=== PATIENT | female | born 1970 | race Caucasian/White ===

== ENCOUNTER 2017-11-13 10:45 | Observation (INO) ==
[2017-11-13] MEDS ORDERED: Isovue-370 500 ML INFUS..BTL IV ONE (10:57)
[2017-11-13] MEDS ORDERED: Metoclopramide 10 MG/2 ML VIAL IVP ONE (10:59)
[2017-11-13 11:24] LABS: Basophils % 0.1 %; Eosinophils % 0.1 %; Hemoglobin 14.6 g/dL (11.5-15.4); Immature Granulocytes % 0.5 % (0-4); Lymphocytes # 2.2 K/mcL (0.6-4.6); Lymphocytes % 28.5 %; Mean Corpuscular HGB Conc 34.8 g/dL (31.6-35.5); Mean Corpuscular Volume 97.7 fL (83.0-100.0); Mean Platelet Volume 9.9 fL (9.4-12.4); Monocytes # 0.8 K/mcL (0.0-1.3); Monocytes % 10.5 %; Neutrophils # 4.7 K/mcL (1.6-8.9); Platelet Count 318 K/mcL (140-400); Red Cell Distribution Width 13.3 % (11.5-14.5); Segmented Neutrophils % 60.3 %
[2017-11-13 11:45] LABS: Alanine Aminotransferase 23 Units/L (7-52); Albumin 4.6 g/dL (3.5-5.7); Albumin/Globulin Ratio 1.1 (1.1-2.2); Alkaline Phosphatase 123 Units/L (34-104); Aspartate Amino Transferase 14 Units/L (13-39); Bilirubin,Direct 0.2 mg/dL (0.0-0.2); Bilirubin,Indirect 0.6 mg/dL (0.0-1.2); Bilirubin,Total 0.8 mg/dL (0.3-1.0); Blood Urea Nitrogen 11 mg/dL (6-20); Calcium 10.5 mg/dL (8.6-10.3); Carbon Dioxide 18 mEq/L (23-29); Chloride 103 mEq/L (98-107); Globulin 4.1 g/dL (2.4-3.5); Glucose 126 mg/dL (70-105); Lipase 82 Units/L (11-82); Osmolality,Calculated 279 (280-300); Potassium 2.8 mEq/L (3.5-5.1); Sodium 134 mEq/L (136-145); Total Protein 8.7 g/dL (6.4-8.9)
[2017-11-13 11:48] LABS: BUN/Creatinine Ratio 14 (6-26); eGFR For Non-African Americans > 60 (> 60)
[2017-11-13] MEDS ORDERED: 0.9 % Sodium Chloride 1,000 ML IVC ONE ×2 (12:35→13:39)
[2017-11-13] MEDS ORDERED: *HR* Morphine 2 MG/ML SYRINGE IVP ONE (12:51)
--- NOTE | 2017-11-13 13:27 | Emergency Department Note ---
Disposition Clinical Impression: Hypokalemia Intractable nausea and vomiting Qualifiers: Vomiting type: unspecified Qualified Code(s): R11.2 - Nausea with vomiting, unspecified Disposition: Admitted As Inpatient Condition: Good Referrals: Gaston Cano DO [Primary Care Provider] - General Adult HPI - General Chief complaint: ED Nausea/Vomiting/Diarrhea Stated complaint: N/V Time Seen by Provider: 11/13/17 10:53 Source: EMS Limitations: no limitations Nursing Notes Reviewed: Yes Vital Signs Reviewed: Yes - History of Present Illness HPI Narrative: Patient presents today via EMS for evaluation of nausea vomiting and generalized illness. Complaining of lower abdominal pain. Patient states symptoms started approximately 4 days ago. Seen at outside emergency department 3 days ago and diagnosed with urinary tract infection. Patient states she has been unable to keep down her unknown antibiotic. She states that she has had multiple episodes of nonbloody nonbilious vomiting. Bowel movements the normal. Pain Scale: 10 - Related Data Previous Rx's Medication Instructions Recorded OxyCODONE Immed Rel [Roxicodone 5 5 mg PO Q6HR PRN 7 Days #28 tablet 10/23/17 MG] Allergies Allergy/AdvReac Type Severity Reaction Status Date / Time tramadol [From Ultram] Allergy Unknown See Verified 11/13/17 14:26 Comments ketorolac [From Toradol] Allergy shortness Verified 11/13/17 14:26 of breath aspirin AdvReac See Verified 11/13/17 14:26 Comments codeine AdvReac Itching Verified 11/13/17 14:26 Diclofenac AdvReac Abdominal Verified 11/13/17 14:26 Pain gabapentin AdvReac Swelling Verified 11/13/17 14:26 ondansetron AdvReac Headache Verified 11/13/17 14:26 [From Zofran (as hydrochloride)] Review of Systems: CONSTITUTIONAL: Chills, weakness, fatigue HEENT: Eyes: No visual changes. Ears, Nose, Throat: No hearing loss, difficulty talking or unable to swallow. SKIN: No rash or itching. CARDIOVASCULAR: No chest pain, chest pressure or chest discomfort. No palpitations or edema. RESPIRATORY: No shortness of breath, cough or sputum. GASTROINTESTINAL: Abdominal pain with nausea associated vomiting GENITOURINARY: Decreased urination NEUROLOGICAL: Mild headache and dizziness standing MUSCULOSKELETAL: Generalized muscle aches and malaise Past Medical History - Past Medical History Medical history: Reports: asthma, COPD, hepatitis, hypertension, other Surgical history: Reports: hysterectomy, other Psychiatric history: Reports: anxiety, bipolar, depression, PTSD - Social History Smoking Status: Never smoker Smokeless Tobacco Status: No Alcohol use: Reports: none Drug use: Reports: none Physical Exam General: Mild distress secondary vomiting Head: Normocephalic Atraumatic Eyes: PERRL, EOMI ENT: Airway patent, no stridor Neck: supple, Chest: Lungs clear to auscultation bilateral Cardiac: Regular rate and rhythm, no murmurs, rubs or gallops Abdomen: soft, nontender, nondistended; no guarding, rebound, or tenderness to percussion Musculoskeletal: Calves symmetric, nontender, Skin: No rash, normal skin tone Neuro: Alert and Oriented to person, place, and time; No focal deficit, - General Limitations: no limitations General appearance: alert, in no apparent distress Course - Reevaluation(s) Reevaluation #1: Patient continued to complain of nausea and unable to keep things down. She received Reglan, Benadryl and will now get some Ativan to help with nausea. The patient had recent urinary tract infection is unable to provide sample here in the emergency department but will need admission for intractable nausea vomiting and hypokalemia. She has had her IV potassium ordered within the emergency department. I have discussed with hospitalist. I am awaiting her urine. I will give her ceftriaxone for concern for urinary tract infection. CT scan negative for intra-abdominal process. - Consultations Consultation #1: Discussed with hospitalist. Patient accepted for admission. Vital Signs Temperature 99.0 F 11/13/17 10:48 Pulse Rate 89 11/13/17 10:48 Respiratory Rate 20 11/13/17 10:48 Blood Pressure 149/82 11/13/17 10:48 O2 Sat by Pulse Oximetry 100 11/13/17 10:48 Temperature 99.0 F 11/13/17 10:48 Pulse Rate 89 11/13/17 10:48 Respiratory Rate 20 11/13/17 10:48 Blood Pressure 149/82 11/13/17 10:48 O2 Sat by Pulse Oximetry 100 11/13/17 10:48 Oxygen Delivery Oxygen Delivery Room Air Medical Decision Making - Lab Data Result diagrams: 11/13/17 11:08 11/13/17 11:08 Lab Results 11/13/17 11/13/17 Range/Units 11:08 11:08 WBC 7.8 (4.3-11.1) K/mcL RBC 4.30 (3.82-4.97) M/mcL Hgb 14.6 (11.5-15.4) g/dL Hct 42.0 (35.3-44.9) % MCV 97.7 (83.0-100.0) fL MCH 34.0 H (28.0-33.3) pg MCHC 34.8 (31.6-35.5) g/dL RDW 13.3 (11.5-14.5) % Plt Count 318 (140-400) K/mcL MPV 9.9 (9.4-12.4) fL Immature Gran % 0.5 (0-4) % Seg Neutrophils % 60.3 % Lymphocytes % 28.5 % Monocytes % 10.5 % Eosinophils % 0.1 % Basophils % 0.1 % Neutrophils # 4.7 (1.6-8.9) K/mcL Lymphocytes # 2.2 (0.6-4.6) K/mcL Monocytes # 0.8 (0.0-1.3) K/mcL Eosinophils # 0.0 (0.0-0.6) K/mcL Basophils # 0.0 (0.0-0.2) K/mcL Sodium 134 L (136-145) mEq/L Potassium 2.8 L (3.5-5.1) mEq/L Chloride 103 (98-107) mEq/L Carbon Dioxide 18 L (23-29) mEq/L BUN 11 (6-20) mg/dL Creatinine 0.77 (0.60-1.20) mg/dL Est GFR ( Amer) > 60 (> 60) Est GFR (Non-Af Amer) > 60 (> 60) BUN/Creatinine Ratio 14 (6-26) Glucose 126 H (70-105) mg/dL Calculated Osmolality 279 L (280-300) Calcium 10.5 H (8.6-10.3) mg/dL Total Bilirubin 0.8 (0.3-1.0) mg/dL Direct Bilirubin 0.2 (0.0-0.2) mg/dL Indirect Bilirubin 0.6 (0.0-1.2) mg/dL AST 14 (13-39) Units/L ALT 23 (7-52) Units/L Alkaline Phosphatase 123 H (34-104) Units/L Serum Total Protein 8.7 (6.4-8.9) g/dL Albumin 4.6 (3.5-5.7) g/dL Globulin 4.1 H (2.4-3.5) g/dL Albumin/Globulin Ratio 1.1 (1.1-2.2) Lipase 82 (11-82) Units/L
[2017-11-13] MEDS ORDERED: *HR* LORazepam 2 MG/ML VIAL IVP ONE (14:20)
[2017-11-13] MEDS ORDERED: cefTRIAXone 1,000 MG in Water for inj. (sterile) 20 ML 10 ML IVP ONE (14:28)
[2017-11-13] MEDS ORDERED: *HR* OxyCODONE Immed Rel 5 MG TABLET PO PRN (14:47)
[2017-11-13] MEDS ORDERED: Acetaminophen 325 MG TABLET PO PRN (14:54)
[2017-11-13] MEDS ORDERED: Naloxone 0.4 MG/ML INJ IVP PRN (14:54)
[2017-11-13] MEDS ORDERED: *HR* HYDROcodone/Acet 5/325 mg TABLET PO PRN (14:54)
--- NOTE | 2017-11-13 15:37 | Internal Med History&Physical ---
<GaryGiorgi Stiles - Last Filed: 11/13/17 16:17> Date of Encounter: 11/13/17 Time of Encounter: 14:45 Internal Medicine - H&P: HPI Chief complaint: Intractable N/V Admitted From: Emergency Dept Plans for Post Hospital Care: Home History of present illness: Ms. Guerra is a 47 year old female w/PMH of asthma, COPD, hepatitis C, hypertension, anxiety, bipolar depression, and PTSD presents from the ED w/CC of nausea, vomiting, fever, chills, and cough for the past 4 days. Pt. states she went to another ED 2 days ago and was dx w/UTI and placed on oral Cipro. Has been unable to keep abx down d/t intractable N/V. Also reports allover pain from constant N/V and right shoulder d/t previous surgery. States emesis is non- bloody and non-bilious. Pt. reports abdominal pain, extreme weakness and fatigue but denies sick contacts, recent illness, headache, changes in vision, chest pain, shortness of breath, diarrhea, constipation, chest congestion, dizziness, lightheadedness, numbness, tingling, pre-syncope, or syncope. Past Med Surg Social Fam HX - Past Medical History Source: patient, old records reviewed Medical history: asthma, COPD, hepatitis (C), hypertension, other Additional medical history: hepatitis C-states from tattoos Psychiatric history: anxiety, bipolar, depression, PTSD - Past Surgical History Surgical History: hysterectomy (Total), other Additional surgical history: leep,. left knee. bladder. pelvic surgery,. cervical disc - Social History Smoking Status: Current every day smoker Packs per day: 1.5 PPD Smokeless Tobacco Status: No Alcohol use: none Drug use: none Current living situation: Home Activity Level: Independent ambulation Recent Out of Country Travel Within the Last 8 Weeks: No Exposure or Possible Exposure to Illness During Travel: No - Family History Mother Race: Family Member Ethnicity: Non- Living Status: Age at : 67 Cause of : [place] Hx Family Cardiac Disorders: Yes ([place], CHF) Hx Family Endocrine Disorder: Yes (DM) Father History Unknown: Yes Race: Family Member Ethnicity: Non- Brother Race: Family Member Ethnicity: Non- Living Status: Age at : 29 Cause of : Suicide Internal Medicine - H&P: Meds OxyCODONE Immed Rel [Roxicodone 5 MG] 5 mg PO Q6HR PRN 7 Days #28 tablet [Rx] 3 Allergy/AdvReac Type Severity Reaction Status Date / Time tramadol [From Ultram] Allergy Unknown See Verified 11/13/17 14:26 Comments ketorolac [From Toradol] Allergy shortness Verified 11/13/17 14:26 of breath aspirin AdvReac See Verified 11/13/17 14:26 Comments codeine AdvReac Itching Verified 11/13/17 14:26 Diclofenac AdvReac Abdominal Verified 11/13/17 14:26 Pain gabapentin AdvReac Swelling Verified 11/13/17 14:26 ondansetron AdvReac Headache Verified 11/13/17 14:26 [From Zofran (as hydrochloride)] All Systems PM: A 10-system review of systems was performed and is negative for pertinent findings except as documented above in the HPI. - Constitutional Constitutional: as per HPI, chills, fatigue, fever(s), weakness, no night sweats - EENT Eyes: no change in vision, no discharge, no pain, no photophobia Ears: no ear discharge, no ear pain, no tinnitus Nose, mouth and throat: no dysphagia, no nasal discharge, no neck pain, no sore throat - Breasts Breasts: as per HPI - Cardiovascular Cardiovascular ROS IM: no chest pain, no diaphoresis, no dyspnea, no lightheadedness, no palpitations, no syncope - Respiratory Respiratory: as per HPI, cough, no dyspnea, no wheezing, no excessive phlegm production - Gastrointestinal Gastrointestinal: as per HPI, abdominal pain, nausea, vomiting, no diarrhea, no hematemesis, no hematochezia, no melena - Genitourinary Genitourinary: difficulty voiding, urinary hesitancy, no change in urinary stream, no dysuria, no flank pain, no hematuria Menstruation: as per HPI, post hysterectomy - Musculoskeletal Musculoskeletal ROS IM: no numbness, no tingling - Integumentary Integumentary IM: no rash, no unusual bruising - Neurological Neurological ROS: as per HPI, weakness, no confusion, no convulsions, no focal weakness, no numbness, no tingling, no tremor(s) - Psychiatric Psychiatric: as per HPI, anxiety, depression, other (PTSD) - Endocrine Endocrine IM: as per HPI - Hematologic/Lymphatic Hematologic/Lymphatic: no easy bruising - Allergic/Immunologic Allergic/Immunologic: as per HPI - Constitutional Vitals: Temp Pulse Resp BP Pulse Ox 99.0 F 89 18 148/96 100 11/13/17 10:48 11/13/17 13:35 11/13/17 15:27 11/13/17 15:27 11/13/17 13:35 General appearance: Present: cooperative, mild distress, A&O X 3, pleasant, answers questions appropriately Exam: Pt. examined at bedside in ED. Pt. very uncomfortable d/t N/V. States she has been doing this for 4 days and is extremely weak. HR RRR. RR 18. SpO2 100% on RA. Temp 99.0F. Pt. states that she is needing to urinate but can't. I explained that this is due in part to her UTI as well as her dehydration status. Pt. otherwise comfortable and voices no complaints. Pt. instructed that she will be falls/safety precautions d/t weakness. - Head Head exam: Present: atraumatic, normocephalic - Eye Eye exam: Present: PERRL, conjuntiva pink, sclera anicteric Pupils: Present: PERRL - ENT ENT exam: Present: normal exam - Neck Neck exam general surgery: Present: normal inspection, supple, trachea midline. Absent: lymphadenopathy - Respiratory Respiratory exam: Present: CTAB. Absent: accessory muscle use, rales, rhonchi, wheezes - Cardiovascular Cardiovascular exam: Present: RRR, +S1, +S2. Absent: diastolic murmur, gallop, rubs, systolic murmur - GI/Abdominal GI/Abdominal exam: Present: normal bowel sounds, soft, no peritoneal signs. Absent: distended, tenderness - Rectal Rectal exam: Present: deferred - Additional comments: exam deferred. - Extremities Exam Extremities exam: Present: warm, radial pulses palpable and symmetrical. Absent : calf tenderness, cyanotic, pedal edema - Back Exam Back exam: Present: normal inspection - Neurological Exam Neurological exam: Present: alert, CN II-XII intact, oriented X3, no focal deficits. Absent: pronater drift, facial droop, speech deficit - Psychiatric Psychiatric exam: Present: anxious - Skin Skin exam: Present: dry, intact Internal Med - H&P Results - Labs CBC & Chem 7: 11/13/17 11:08 11/13/17 11:08 - Diagnostic Studies CT scan - abdomen Additional comments: Impressions Abdomen/Pelvis CT 11/13/17 10:57 IMPRESSION: 1. No acute abdominal or pelvic abnormality. D/ / 11/13/2017 14:20:52 Nithya Hubbard MD / Brigette Mcdonald Interpreting Provider: Nithya Hubbard MD - Assessment and plan (1) Intractable nausea and vomiting Current Visit: Yes Status: Acute Assessment and plan: Acute cyclical intractable nausea and vomiting for the past 4 days. Pt. states she is unable to hold anything down, including PO abx prescribed 2 days ago for UTI. Pt. appears dry on exam d/t fluid loss from N/V. Denies diarrhea. Associated sx: fever, chills, cough. Rapid influenza A & B ordered. test ordered. NPO except medications and ice chips. Advance diet as tolerated. Monitor I&O and daily weight. IVP Phenergan ordered for N/V. Falls/safety precautions and up with assist d/t extreme weakness and fatigue. Pt. discussed w /Dr. Beltre who agrees w/plan of care. Pt. is moderate risk for further morbidity and complications d/t current intractable N/V, dehydration status, UTI dx and inability to complete abx coverage, hx, and risk factors. Observation. Qualifiers: Vomiting type: cyclical vomiting Qualified Code(s): G43.A1 - Cyclical vomiting, intractable (2) UTI (urinary tract infection) Current Visit: Yes Status: Acute Assessment and plan: Acute UTI dx 2 days ago. Pt. states she was placed on PO Cipro but has been unable to hold down abx d/t N/V. IVPB ceftriaxone ordered to cover UTI until U/ A w/reflex micro and culture is resulted. Monitor I&O and f/u labs. Qualifiers: Urinary tract infection type: site unspecified Hematuria presence: without hematuria Qualified Code(s): N39.0 - Urinary tract infection, site not specified (3) Hypokalemia Current Visit: Yes Status: Acute Assessment and plan: Acute hypokalemia w/potassium of 2.8 on admission likely d/t dehydration from intractable N/V. PO and IVPB potassium replacement ordered. Potassium re-check at 23:00. Monitor pt. and f/u labs. Cardiac monitoring. (4) Hyponatremia Current Visit: Yes Status: Acute Assessment and plan: Acute hyponatremia w/sodium of 134 on admission likely d/t dehydration from intractable N/V. Pt. receiving two boluses of 0.9 NS IV fluids to be followed by 125 mL/HR. Monitor f/u labs. Cardiac monitoring. (5) Hepatitis C Current Visit: Yes Status: Chronic Assessment and plan: Hx of chronic hepatitis C. Pt. states she contracted hep C from tattoos. Denies drug use/abuse. Hepatitis profile ordered. Blood borne precautions to be followed. Qualifiers: Viral hepatitis chronicity: chronic Qualified Code(s): B18.2 - Chronic viral hepatitis C (6) HTN (hypertension) Current Visit: Yes Status: Chronic Assessment and plan: Hx of chronic HTN. Monitor pt. and VS. Pt. does not currently take HTN medication. IVP hydralazine Q6HR PRN ordered. Qualifiers: Hypertension type: essential hypertension Qualified Code(s): I10 - Essential (primary) hypertension (7) Tobacco abuse Current Visit: Yes Status: Chronic Assessment and plan: Hx of chronic tobacco abuse. Pt. reports smoking 1.5 PPD. 21 mg nicotine patch ordered. Smoking cessation education provided. (8) DVT prophylaxis Current Visit: Yes Status: Acute Assessment and plan: Heparin 5,000 units SQ Q12HR for DVT prophylaxis. Monitor pt. for signs of bleeding. (9) Tobacco abuse counseling Current Visit: Yes Status: Acute Assessment and plan: Acute tobacco abuse counseling >10 minutes. Pt. reports smoking 1.5 PPD. States this is a good time to quit. Educated on importance of quitting as well as cessation techniques and benefits. - Time Spent With Patient Total time spent is greater than 50% in coordination of care (as documented) at patient's floor/unit and/or counseling patient: Greater than 35 minutes <Luis Beltre - Last Filed: 11/14/17 01:08> Date of Encounter: 11/14/17 Internal Medicine - H&P: HPI History of present illness: Ms. Guerra is a 47 year old female All Systems PM: A 10-system review of systems was performed and is negative for pertinent findings except as documented above in the HPI. - Constitutional Vitals: Temp Pulse Resp BP Pulse Ox 98.1 F 72 16 127/73 96 11/13/17 23:21 11/13/17 23:21 11/13/17 23:21 11/13/17 23:21 11/13/17 23:21 Internal Med - H&P Results - Labs CBC & Chem 7: 11/13/17 11:08 11/13/17 23:40 Labs: BMP 11/13/17 23:40 Potassium 4.9 D - Assessment and plan (1) Intractable nausea and vomiting Current Visit: Yes Status: Acute Qualifiers: Vomiting type: cyclical vomiting Qualified Code(s): G43.A1 - Cyclical vomiting, intractable (2) Hypokalemia Current Visit: Yes Status: Acute (3) Hyponatremia Current Visit: Yes Status: Acute (4) Hepatitis C Current Visit: Yes Status: Chronic Qualifiers: Viral hepatitis chronicity: chronic Qualified Code(s): B18.2 - Chronic viral hepatitis C (5) HTN (hypertension) Current Visit: Yes Status: Chronic Qualifiers: Hypertension type: essential hypertension Qualified Code(s): I10 - Essential (primary) hypertension (6) DVT prophylaxis Current Visit: Yes Status: Acute (7) UTI (urinary tract infection) Current Visit: Yes Status: Acute Qualifiers: Urinary tract infection type: site unspecified Hematuria presence: without hematuria Qualified Code(s): N39.0 - Urinary tract infection, site not specified (8) Tobacco abuse Current Visit: Yes Status: Chronic (9) Tobacco abuse counseling Current Visit: Yes Status: Acute - Time Spent With Patient Total time spent is greater than 50% in coordination of care (as documented) at patient's floor/unit and/or counseling patient: - Attending Attestation I have seen and independently examined this patient. I agree with assessment and plan of Nurse Practitioner. 47 year old female who recently had shoulder surgery presents for intractable N/ V. Consequently she is also having hypokalemia. She has been given IV fluids and potassium replacement. Currently she appears dry on my exam, mild pain from her shoulder surgery, otherwise no abnormal findings. She is hemodynamically stable. Will need close monitoring and IV fluid hydration along with potassium supplementation.
[2017-11-13] MEDS: 0.9 % Sodium Chloride 1,000 ML IVC SCH ×2 (17:13→20:22)
[2017-11-13] MEDS: *HR* Heparin 5,000 UNIT/ML VIAL SQ SCH (18:02)
[2017-11-13] MEDS: Nicotine 21 MG PATCH.TD24 TD SCH (18:03)
[2017-11-13] MEDS: *HR* Promethazine 25 MG/ML VIAL IVP PRN (18:44)
[2017-11-13 21:25] LABS: Amphetamine Screen,Urine Negative ng/mL (Cutoff=1000); Barbiturate Screen,Urine Negative ng/mL (Cutoff=200); Benzodiazepines Screen,Urine Negative ng/mL (Cutoff=200); Cannabinoid Screen,Urine Positive ng/mL (Cutoff = 50); Cocaine Screen,Urine Negative ng/mL (Cutoff= 300); Opiate Screen,Urine Negative ng/mL (Cutoff=300); Phencyclidine Screen,Urine Negative ng/mL (Cutoff=25)
[2017-11-13] MEDS ORDERED: *HR* Promethazine 25 MG/ML VIAL IVP ONE (21:37)
[2017-11-14] MEDS: *HR* Promethazine 25 MG/ML VIAL IVP PRN ×2 (02:35→10:38)
[2017-11-14 02:42] LABS: Bilirubin,Urine Negative (Negative); Blood,Urine Negative (Negative); Clarity,Urine Clear (Clear); Color,Urine Yellow (Yellow); Glucose,Urine (UA) Normal (Normal); Ketones,Urine Negative (Negative); Leukocyte Esterase,Urine Small (Negative); Nitrite,Urine Negative (Negative); Protein,Urine Negative (Neg-Trace); Specific Gravity,Urine < 1.005 (1.010-1.025); Urobilinogen,Urine Normal (Normal)
[2017-11-14 02:56] LABS: Bacteria,Urine Few per hpf (None-Few); RBC,Urine 0-3 per hpf (0-3); Squamous Epithelial Cell,Urine Few per lpf (None-Few); WBC,Urine 0-3 per hpf (0-3)
[2017-11-14] MEDS: 0.9 % Sodium Chloride 1,000 ML IVC SCH (04:43)
[2017-11-14] MEDS: *HR* Heparin 5,000 UNIT/ML VIAL SQ SCH (04:44)
[2017-11-14 07:37] LABS: Basophils % 0.3 %; Eosinophils % 0.1 %; Hematocrit 37.8 % (35.3-44.9); Immature Granulocytes % 0.4 % (0-4); Lymphocytes # 2.7 K/mcL (0.6-4.6); Lymphocytes % 33.5 %; Mean Corpuscular HGB Conc 34.1 g/dL (31.6-35.5); Mean Corpuscular Hemoglobin 34.1 pg (28.0-33.3); Mean Platelet Volume 9.7 fL (9.4-12.4); Monocytes % 12.2 %; Neutrophils # 4.3 K/mcL (1.6-8.9); Platelet Count 236 K/mcL (140-400); Red Blood Count 3.78 M/mcL (3.82-4.97); Red Cell Distribution Width 13.5 % (11.5-14.5); Segmented Neutrophils % 53.5 %
[2017-11-14 07:58] VITALS: BP 173/82
[2017-11-14 08:03] LABS: Hemoglobin 12.9 g/dL (11.5-15.4)
[2017-11-14 08:24] LABS: BUN/Creatinine Ratio 11 (6-26); Blood Urea Nitrogen 6 mg/dL (6-20); Calcium 9.2 mg/dL (8.6-10.3); Carbon Dioxide 19 mEq/L (23-29); Chloride 105 mEq/L (98-107); Glucose 103 mg/dL (70-105); Magnesium 1.5 mg/dL (1.6-2.6); Osmolality,Calculated 272 (280-300); Potassium 3.3 mEq/L (3.5-5.1); Sodium 132 mEq/L (136-145); eGFR For Non-African Americans > 60 (> 60)
[2017-11-14] MEDS: Nicotine 21 MG PATCH.TD24 TD SCH (08:53)
[2017-11-14] MEDS ORDERED: cefTRIAXone 1,000 MG in Water for inj. (sterile) 20 ML 10 ML IVP SCH (09:00)
[2017-11-14 09:48] LABS: Hepatitis A Antibody IgM Nonreactive (Nonreactive); Hepatitis B Core IgM Nonreactive (Nonreactive); Hepatitis B Surface Antigen Nonreactive (Nonreactive)
[2017-11-14 11:11] LABS: Hepatitis C Virus Antibody Reactive (Nonreactive)
--- NOTE | 2017-11-14 18:45 | Discharge Summary ---
- NOTES TO OUTPATIENT PROVIDER Notes to Outpatient Provider: Pt exhibiting drug seeking behaviors, please see chart. Date of Encounter: 11/14/17 Time of Encounter: 10:45 - Discharge Diagnosis (1) Intractable nausea and vomiting Priority: Primary Status: Acute Assessment and Plan: 11/14- Pt had no vomiting per primary RN. Pt was repeatedly requesting more pain medications and antiemetics despite no vomiting. Pt had Phenergan ordered, no orders were changed. I mentioned to the pt that her vomiting could be from marijuana use, pt denies that it could be the cause and family becomes upset. See hospital course. Acute cyclical intractable nausea and vomiting for the past 4 days. Pt. states she is unable to hold anything down, including PO abx prescribed 2 days ago for UTI. Pt. appears dry on exam d/t fluid loss from N/V. Denies diarrhea. Associated sx: fever, chills, cough. Rapid influenza A & B ordered. test ordered. NPO except medications and ice chips. Advance diet as tolerated. Monitor I&O and daily weight. IVP Phenergan ordered for N/V. Falls/safety precautions and up with assist d/t extreme weakness and fatigue. Pt. discussed w /Dr. Beltre who agrees w/plan of care. Pt. is moderate risk for further morbidity and complications d/t current intractable N/V, dehydration status, UTI dx and inability to complete abx coverage, hx, and risk factors. Observation. Qualifiers: Vomiting type: cyclical vomiting Qualified Code(s): G43.A1 - Cyclical vomiting, intractable (2) Hypokalemia Priority: Secondary Status: Acute Assessment and Plan: 11/13-K= 3.3. Pt signed out AMA without additional supplementation beyond what she had in the ER. Acute hypokalemia w/potassium of 2.8 on admission likely d/t dehydration from intractable N/V. PO and IVPB potassium replacement ordered. Potassium re-check at 23:00. Monitor pt. and f/u labs. Cardiac monitoring. (3) Hyponatremia Priority: Secondary Status: Acute Assessment and Plan: See above for hypokalemia. (4) Hepatitis C Priority: Secondary Status: Chronic Assessment and Plan: 11/14-Hepatitis C antibody screen reactive. Pt should follow up with PCP. Hx of chronic hepatitis C. Pt. states she contracted hep C from tattoos. Denies drug use/abuse. Hepatitis profile ordered. Blood borne precautions to be followed. Qualifiers: Viral hepatitis chronicity: chronic Qualified Code(s): B18.2 - Chronic viral hepatitis C (5) HTN (hypertension) Priority: Secondary Status: Chronic Assessment and Plan: Hx of chronic HTN. Monitor pt. and VS. Pt. does not currently take HTN medication. IVP hydralazine Q6HR PRN ordered. Qualifiers: Hypertension type: essential hypertension Qualified Code(s): I10 - Essential (primary) hypertension (6) DVT prophylaxis Priority: Secondary Status: Acute Assessment and Plan: Heparin 5,000 units SQ Q12HR for DVT prophylaxis. Monitor pt. for signs of bleeding. (7) UTI (urinary tract infection) Priority: Secondary Status: Acute Assessment and Plan: 11/14- Pt denies urinary symptoms, though nausea could be symptom. Pt signed out AMA without antibiotics. Acute UTI dx 2 days ago. Pt. states she was placed on PO Cipro but has been unable to hold down abx d/t N/V. IVPB ceftriaxone ordered to cover UTI until U/ A w/reflex micro and culture is resulted. Monitor I&O and f/u labs. Qualifiers: Urinary tract infection type: site unspecified Hematuria presence: without hematuria Qualified Code(s): N39.0 - Urinary tract infection, site not specified (8) Tobacco abuse Priority: Secondary Status: Chronic Assessment and Plan: 11/14- Chronic. Hx of chronic tobacco abuse. Pt. reports smoking 1.5 PPD. 21 mg nicotine patch ordered. Smoking cessation education provided. (9) Tobacco abuse counseling Priority: Secondary Status: Acute (10) Drug-seeking behavior Priority: Secondary Status: Suspected Assessment and Plan: Pt was unable to discuss symptoms, wanted to speak about getting extra anti- emetics, specifically additional phenergan and compazine, and pain medications. [facility] report shows that she has multiple providers, multiple pharmacies, and many small prescriptions this month for pain medication. Daughter at bedside becomes upset and calls me "fucking retarded" when I explained to the pt that I would not be continuing her medications. I again explained to them that this could be considered drug-seeking behavior and again daughter states that I am "fucking retarded". Daughter tries to explain the multiple providers and prescriptions by saying that SHE drops off the prescriptions for her mother and was unable to understand that that has no bearing on the fact that the prescriptions are in the pt's name. Urine drug screen is negative for opiates, only positive for marijuana that she admits to using for pain control despite the multiple prescriptions for percocet and oxycontin. Pt and daughter were upset, yelling at me, cursing, and demanded to be discharged. I told them they were free to leave and pt signed out AMA. ' Pt most recently had Oxicodone 5mg po QID #28 filled on 11/06 here at [place] [facility]. Urine drug screen negative for opiates. Hospital course: Ms. Guerra is a 47 year old female admitted with intractable n/v for 4 days. Pt with hyponatremia and hypokalemia. Pt also exhibiting some drug seeking behavior and she signed out AMA. See assessment and plan for hospital course. Discharge discussed with: patient - Time Spent with Patient Total time spent providing and/or coordinating discharge services: Less than 30 minutes - Discharge Medications Allergies/Adverse Reactions: 3 Allergy/AdvReac Type Severity Reaction Status Date / Time tramadol [From Ultram] Allergy Unknown See Verified 11/13/17 14:26 Comments ketorolac [From Toradol] Allergy shortness Verified 11/13/17 14:26 of breath aspirin AdvReac See Verified 11/13/17 14:26 Comments codeine AdvReac Itching Verified 11/13/17 14:26 Diclofenac AdvReac Abdominal Verified 11/13/17 14:26 Pain gabapentin AdvReac Swelling Verified 11/13/17 14:26 ondansetron AdvReac Headache Verified 11/13/17 14:26 [From Zofran (as hydrochloride)] Date of admission: 11/13/17 14:38 Primary care physician: Gaston Cano Discharging clinician: Martina Adrian Anticipated date of discharge: 11/14/17 - Constitutional Vitals: Temp Pulse Resp BP Pulse Ox 99.2 F 82 16 173/82 98 11/14/17 07:57 11/14/17 07:57 11/14/17 07:57 11/14/17 07:57 11/14/17 09:02 General appearance: Present: cooperative, mild distress, A&O X 3, pleasant, no acute distress, answers questions appropriately Exam: above - Head Head exam: Present: atraumatic, normal inspection, normocephalic - Respiratory Respiratory exam: Present: CTAB. Absent: accessory muscle use, chest wall tenderness, rales, respiratory distress, rhonchi, wheezes - Cardiovascular Cardiovascular exam: Present: RRR, +S1, +S2. Absent: bradycardia, diastolic murmur, gallop, rubs, systolic murmur, tachycardia - GI/Abdominal GI/Abdominal exam: Present: normal bowel sounds, soft. Absent: distended, hepatomegaly, tenderness - Extremities Exam Extremities exam: Present: normal capillary refill, normal inspection, warm, radial pulses palpable and symmetrical. Absent: calf tenderness, cyanotic, pedal edema, tenderness - Neurological Exam Neurological exam: Present: alert, oriented X3, no focal deficits. Absent: altered, facial droop, speech deficit - Skin Skin exam: Present: dry, intact, normal color, warm. Absent: rash - Patient Status Disposition: Left Against Medical Advice Condition: Good Functional capacity at discharge: independent ambulation - Discharge Instructions Follow Up With: Gaston Cano DO [Primary Care Provider] -
== END 2017-11-14 10:52 | disposition left against medical advice (07) ==
LOC: 3BNU 10:45 → EMEROOARM 10:45 → 3BNU 15:56
PROVIDERS: ADMIT Student in an Organized Health Care Education/Training Program; ATTEND Student in an Organized Health Care Education/Training Program

== ENCOUNTER 2019-03-11 12:05 | Observation (INO) ==
[2019-03-11] MEDS ORDERED: Ondansetron ODT 4 MG TAB.RAPDIS SL ONE (13:01)
[2019-03-11] MEDS ORDERED: 0.9 % Sodium Chloride 1,000 ML IVC ONE (13:31)
[2019-03-11] MEDS ORDERED: *HR* FentaNYL (PF) 100 MCG/2 ML VIAL IVP ONE ×2 (13:32→16:31)
[2019-03-11] MEDS ORDERED: MetroNIDAZOLE 500 MG/100 ML 500 MG/100 ML BAG IVPB ONE (13:39)
[2019-03-11 14:13] LABS: Basophils % 0.1 %; Hemoglobin 14.8 g/dL (11.5-15.4); Immature Granulocytes % 0.4 % (0-4); Lymphocytes # 3.1 K/mcL (0.6-4.6); Lymphocytes % 26.6 %; Mean Corpuscular HGB Conc 35.2 g/dL (31.6-35.5); Mean Corpuscular Hemoglobin 35.2 pg (28.0-33.3); Monocytes # 1.1 K/mcL (0.0-1.3); Monocytes % 9.6 %; Neutrophils # 7.4 K/mcL (1.6-8.9); Platelet Count 339 K/mcL (140-400); Segmented Neutrophils % 63.3 %; White Blood Count 11.7 K/mcL (4.3-11.1)
[2019-03-11 14:28] LABS: BUN/Creatinine Ratio 20 (6-26); Blood Urea Nitrogen 16 mg/dL (6-20); Calcium 9.7 mg/dL (8.6-10.3); Carbon Dioxide 17 mEq/L (23-29); Chloride 104 mEq/L (98-107); Glucose 113 mg/dL (70-105); Osmolality,Calculated 278 (280-300); Potassium 3.2 mEq/L (3.5-5.1); Sodium 133 mEq/L (136-145); eGFR For African Americans > 60 (> 60); eGFR For Non-African Americans > 60 (> 60)
[2019-03-11] MEDS ORDERED: *HR* Promethazine 25 MG/ML VIAL IVP ONE (16:04)
[2019-03-11] MEDS ORDERED: *HR* Promethazine 25 MG/ML VIAL IVP PRN (17:09)
[2019-03-11] MEDS ORDERED: Naloxone 0.4 MG/ML INJ IVP PRN (17:09)
[2019-03-11] MEDS ORDERED: *HR* Labetalol 20 MG/4 ML SYRINGE IVP PRN (17:33)
[2019-03-11] MEDS: Ondansetron 4 MG/2 ML VIAL IVP PRN (20:58)
[2019-03-11] MEDS: *HR* Heparin 5,000 UNIT/ML VIAL SQ SCH (20:58)
[2019-03-11] MEDS: 0.9 % Sodium Chloride w KCl 40 MEQ/1,000 ML MLS IVC SCH (20:59)
[2019-03-11] MEDS ORDERED: Albuterol 2.5 MG/3 ML NEBULIZER IH PRN (22:00)
[2019-03-11] MEDS: Ipratropium/Albuterol Neb 3 ML IH SCH (22:58)
[2019-03-11] MEDS ORDERED: Acetaminophen IV 1,000 MG/100 ML INFUS..BTL IVPB ONE (23:03)
[2019-03-11] MEDS: MetroNIDAZOLE 500 MG/100 ML 500 MG/100 ML BAG IVPB SCH (23:34)
[2019-03-12] MEDS: *HR* Heparin 5,000 UNIT/ML VIAL SQ SCH ×2 (05:39→18:16)
[2019-03-12] MEDS ORDERED: *HR* HYDROmorphone 2 MG TABLET PO ONE (05:44)
[2019-03-12] MEDS: Ipratropium/Albuterol Neb 3 ML IH SCH ×2 (07:25→16:16)
[2019-03-12] MEDS: 0.9 % Sodium Chloride w KCl 40 MEQ/1,000 ML MLS IVC SCH (08:04)
[2019-03-12] MEDS: Ondansetron 4 MG/2 ML VIAL IVP PRN ×2 (08:50→18:23)
[2019-03-12] MEDS: MetroNIDAZOLE 500 MG/100 ML 500 MG/100 ML BAG IVPB SCH ×2 (08:53→16:19)
[2019-03-12 09:25] LABS: Bilirubin,Urine Negative (Negative); Blood,Urine Negative (Negative); Clarity,Urine Clear (Clear); Color,Urine Yellow (Yellow); Glucose,Urine (UA) Normal (Normal); Ketones,Urine 15 mg/dL (Negative); Leukocyte Esterase,Urine Negative (Negative); Nitrite,Urine Negative (Negative); PH,Urine 6.5 pH Units (5.0-8.0); Protein,Urine Negative (Neg-Trace); Urobilinogen,Urine Normal (Normal)
[2019-03-12 10:03] LABS: Basophils % 0.3 %; Eosinophils % 0.3 %; Hematocrit 39.4 % (35.3-44.9); Hemoglobin 13.5 g/dL (11.5-15.4); Immature Granulocytes % 0.3 % (0-4); Lymphocytes # 3.4 K/mcL (0.6-4.6); Lymphocytes % 42.4 %; Mean Corpuscular HGB Conc 34.3 g/dL (31.6-35.5); Mean Corpuscular Hemoglobin 35.2 pg (28.0-33.3); Mean Corpuscular Volume 102.9 fL (83.0-100.0); Mean Platelet Volume 10.1 fL (9.4-12.4); Monocytes # 1.1 K/mcL (0.0-1.3); Monocytes % 14.3 %; Neutrophils # 3.4 K/mcL (1.6-8.9); Platelet Count 257 K/mcL (140-400); Red Blood Count 3.83 M/mcL (3.82-4.97); Red Cell Distribution Width 12.2 % (11.5-14.5); Segmented Neutrophils % 42.4 %; White Blood Count 7.9 K/mcL (4.3-11.1)
[2019-03-12 10:21] LABS: BUN/Creatinine Ratio 16 (6-26); Blood Urea Nitrogen 12 mg/dL (6-20); Calcium 9.2 mg/dL (8.6-10.3); Carbon Dioxide 19 mEq/L (23-29); Chloride 107 mEq/L (98-107); Glucose 105 mg/dL (70-105); Magnesium 1.7 mg/dL (1.6-2.6); Osmolality,Calculated 280 (280-300); Potassium 3.5 mEq/L (3.5-5.1); Sodium 135 mEq/L (136-145); eGFR For African Americans > 60 (> 60); eGFR For Non-African Americans > 60 (> 60)
[2019-03-12] MEDS ORDERED: 0.9 % Sodium Chloride w KCl 40 MEQ/1,000 ML MLS IVC SCH (11:00)
[2019-03-12 19:04] VITALS: BP 141/76
== END 2019-03-12 19:30 | disposition left against medical advice (07) ==
LOC: 3BNU 12:05 → EMEROOARM 12:05 → SUATTDRO 18:16 → 3BNU 18:52
PROVIDERS: ADMIT Internal Medicine; ATTEND Internal Medicine

== ENCOUNTER 2019-07-13 15:05 | Inpatient (IN) ==
[2019-07-13] MEDS ORDERED: *HR* Promethazine 25 MG/ML VIAL IVP ONE (19:56)
[2019-07-13] MEDS ORDERED: Morphine Sulfate 2 MG/ML SYRINGE IVP PRN (20:23)
[2019-07-13] MEDS ORDERED: Naloxone 0.4 MG/ML INJ IVP PRN (20:26)
[2019-07-13] MEDS ORDERED: Gadolinium Contrast Agent (WT Based) IV PRN (20:37)
[2019-07-13] MEDS ORDERED: MetroNIDAZOLE 500 MG/100 ML 500 MG/100 ML BAG IVPB SCH (21:00)
[2019-07-13 21:01] LABS: Basophils % 0.1 %; Eosinophils % 0.1 %; Hematocrit 40.9 % (35.3-44.9); Hemoglobin 13.8 g/dL (11.5-15.4); Immature Granulocytes % 0.3 % (0-4); Lymphocytes # 2.7 K/mcL (0.6-4.6); Lymphocytes % 25.9 %; Mean Corpuscular HGB Conc 33.7 g/dL (31.6-35.5); Mean Corpuscular Hemoglobin 34.5 pg (28.0-33.3); Mean Corpuscular Volume 102.3 fL (83.0-100.0); Mean Platelet Volume 10.6 fL (9.4-12.4); Monocytes # 0.9 K/mcL (0.0-1.3); Neutrophils # 6.7 K/mcL (1.6-8.9); Platelet Count 250 K/mcL (140-400); Red Cell Distribution Width 12.6 % (11.5-14.5); Segmented Neutrophils % 64.6 %; White Blood Count 10.4 K/mcL (4.3-11.1)
[2019-07-13] MEDS ORDERED: hydrALAZINE 10 MG TABLET PO PRN (21:04)
[2019-07-13 21:25] LABS: Alanine Aminotransferase 23 Units/L (7-52); Albumin 4.4 g/dL (3.5-5.7); Albumin/Globulin Ratio 1.3 (1.1-2.2); Alkaline Phosphatase 106 Units/L (34-104); Aspartate Amino Transferase 18 Units/L (13-39); BUN/Creatinine Ratio 21 (6-26); Bilirubin,Total 0.7 mg/dL (0.3-1.0); Blood Urea Nitrogen 13 mg/dL (6-20); Calcium 9.3 mg/dL (8.6-10.3); Carbon Dioxide 19 mEq/L (23-29); Chloride 105 mEq/L (98-107); Globulin 3.3 g/dL (2.4-3.5); Glucose 104 mg/dL (70-105); Osmolality,Calculated 280 (280-300); Potassium 3.2 mEq/L (3.5-5.1); Sodium 135 mEq/L (136-145); Total Protein 7.7 g/dL (6.4-8.9); Troponin I < 0.03 ng/mL (< 0.04); eGFR For African Americans > 60 (> 60); eGFR For Non-African Americans > 60 (> 60)
[2019-07-13 22:57] LABS: Prolactin 19.59 ng/mL (3.80-23.20)
[2019-07-13] MEDS: Ipratropium/Albuterol Neb 3 ML IH SCH (23:53)
[2019-07-14] MEDS: 0.9 % Sodium Chloride 1,000 ML IVC SCH ×3 (00:42→12:42)
[2019-07-14 01:40] LABS: Basophils % 0.1 %; Eosinophils % 0.1 %; Hemoglobin 14.1 g/dL (11.5-15.4); Immature Granulocytes % 0.3 % (0-4); Lymphocytes # 2.9 K/mcL (0.6-4.6); Lymphocytes % 25.3 %; Mean Corpuscular HGB Conc 34.4 g/dL (31.6-35.5); Mean Corpuscular Hemoglobin 35.3 pg (28.0-33.3); Mean Corpuscular Volume 102.5 fL (83.0-100.0); Mean Platelet Volume 10.6 fL (9.4-12.4); Monocytes # 0.7 K/mcL (0.0-1.3); Monocytes % 6.1 %; Neutrophils # 7.9 K/mcL (1.6-8.9); Platelet Count 275 K/mcL (140-400); Red Cell Distribution Width 12.5 % (11.5-14.5); Segmented Neutrophils % 68.1 %; White Blood Count 11.5 K/mcL (4.3-11.1)
[2019-07-14 02:00] LABS: BUN/Creatinine Ratio 21 (6-26); Blood Urea Nitrogen 14 mg/dL (6-20); Calcium 9.5 mg/dL (8.6-10.3); Carbon Dioxide 20 mEq/L (23-29); Chloride 105 mEq/L (98-107); Glucose 100 mg/dL (70-105); Magnesium 1.9 mg/dL (1.6-2.6); Osmolality,Calculated 281 (280-300); Phosphorous 3.4 mg/dL (2.7-4.5); Potassium 3.7 mEq/L (3.5-5.1); Sodium 135 mEq/L (136-145); eGFR For African Americans > 60 (> 60); eGFR For Non-African Americans > 60 (> 60)
[2019-07-14] MEDS: *HR* Promethazine 25 MG/ML VIAL IVP PRN ×3 (02:54→16:37)
[2019-07-14] MEDS: Piperacillin/Tazobactam 3.375 GM in 0.9 % Sodium Chloride Mini Bag 100 ML IVPB SCH ×2 (06:02→16:50)
[2019-07-14] MEDS: Ipratropium/Albuterol Neb 3 ML IH SCH ×2 (07:32→16:01)
[2019-07-14 08:51] LABS: Bilirubin,Urine Negative (Negative); Blood,Urine Trace (Negative); Clarity,Urine Clear (Clear); Color,Urine Dark Yellow (Yellow); Glucose,Urine (UA) Normal (Normal); Ketones,Urine 40 mg/dL (Negative); Leukocyte Esterase,Urine Negative (Negative); Nitrite,Urine Negative (Negative); PH,Urine 6.5 pH Units (5.0-8.0); Protein,Urine Negative (Neg-Trace); Specific Gravity,Urine 1.018 (1.010-1.025); Urobilinogen,Urine Normal (Normal)
[2019-07-14 08:54] LABS: Bacteria,Urine None Seen per hpf (None-Few); Hyaline Casts,Urine None Seen per lpf (None-Few); Squamous Epithelial Cell,Urine Many per lpf (None-Few); WBC,Urine 0-3 per hpf (0-3)
[2019-07-14] MEDS ORDERED: Nicotine 21 MG PATCH.TD24 TD SCH (09:00)
[2019-07-14 09:03] LABS: Amphetamine Screen,Urine Negative ng/mL (Cutoff=1000); Barbiturate Screen,Urine Negative ng/mL (Cutoff=200); Benzodiazepines Screen,Urine Negative ng/mL (Cutoff=200); Cannabinoid Screen,Urine Positive ng/mL (Cutoff = 50); Cocaine Screen,Urine Negative ng/mL (Cutoff= 300); Opiate Screen,Urine Positive ng/mL (Cutoff=300); Phencyclidine Screen,Urine Negative ng/mL (Cutoff=25)
[2019-07-14 09:16] LABS: RBC,Urine 0-3 per hpf (0-3); Renal Epithelial Cells,Urine Few per hpf (None-Few); Transitional Epi Cells,Urine Few per hpf (None-Few)
[2019-07-14 11:25] VITALS: BP 154/96
[2019-07-14] MEDS ORDERED: Ondansetron ODT 4 MG TAB.RAPDIS PO PRN (15:55)
[2019-07-14] MEDS ORDERED: *HR* Heparin 5,000 UNIT/ML VIAL SQ SCH (22:00)
[2019-07-15] MEDS ORDERED: Levothyroxine 25 MCG TABLET PO SCH (06:30)
== END 2019-07-14 17:29 | disposition left against medical advice (07) | DRG 53 ==
LOC: 2ANU → SUATTDRO 18:58
PROVIDERS: ADMIT Internal Medicine; ATTEND Family Medicine

== ENCOUNTER 2020-06-15 22:52 | Observation (INO) ==
[2020-06-16] MEDS ORDERED: Naloxone 0.4 MG/ML INJ IVP PRN (10:31)
[2020-06-16] MEDS ORDERED: Ondansetron 4 MG/2 ML VIAL IVP PRN (10:31)
[2020-06-16] MEDS ORDERED: Albuterol 2.5 MG/3 ML NEBULIZER IH PRN (10:51)
[2020-06-16] MEDS ORDERED: *HR* LORazepam 2 MG/ML VIAL IVP PRN (10:56)
[2020-06-16 11:04] LABS: Basophils % 0.2 %; Eosinophils % 0.2 %; Hematocrit 39.4 % (35.3-44.9); Hemoglobin 13.5 g/dL (11.5-15.4); Immature Granulocytes % 0.2 % (0-4); Lymphocytes # 3.3 K/mcL (0.6-4.6); Lymphocytes % 35.5 %; Mean Corpuscular HGB Conc 34.3 g/dL (31.6-35.5); Mean Corpuscular Hemoglobin 32.2 pg (28.0-33.3); Mean Platelet Volume 9.5 fL (9.4-12.4); Monocytes # 1.1 K/mcL (0.0-1.3); Monocytes % 12.4 %; Neutrophils # 4.8 K/mcL (1.6-8.9); Platelet Count 282 K/mcL (140-400); Red Blood Count 4.19 M/mcL (3.82-4.97); Red Cell Distribution Width 12.7 % (11.5-14.5); Segmented Neutrophils % 51.5 %; White Blood Count 9.2 K/mcL (4.3-11.1)
[2020-06-16 11:15] LABS: INR 1.1
[2020-06-16] MEDS ORDERED: 0.9 % Sodium Chloride 1,000 ML IVC SCH (11:15)
[2020-06-16 11:17] LABS: Activated Partial Thrombo Time 30.2 Seconds (26.0-36.0)
[2020-06-16 11:23] LABS: Alanine Aminotransferase 33 Units/L (7-52); Albumin 4.2 g/dL (3.5-5.7); Albumin/Globulin Ratio 1.4 (1.1-2.2); Alkaline Phosphatase 99 Units/L (34-104); Aspartate Amino Transferase 19 Units/L (13-39); BUN/Creatinine Ratio 21 (6-26); Bilirubin,Total 0.6 mg/dL (0.3-1.0); Blood Urea Nitrogen 14 mg/dL (6-20); Calcium 9.4 mg/dL (8.6-10.3); Carbon Dioxide 22 mEq/L (23-29); Chloride 102 mEq/L (98-107); Ethanol < 10 mg/dL (Less than 10); Globulin 3.1 g/dL (2.4-3.5); Glucose 91 mg/dL (70-105); Magnesium 1.7 mg/dL (1.6-2.6); Osmolality,Calculated 272 (280-300); Phosphorous 2.5 mg/dL (2.7-4.5); Potassium 3.6 mEq/L (3.5-5.1); Sodium 131 mEq/L (136-145); Total Protein 7.3 g/dL (6.4-8.9); eGFR For African Americans > 60 (> 60); eGFR For Non-African Americans > 60 (> 60)
[2020-06-16 13:53] LABS: Bilirubin,Urine Negative (Negative); Blood,Urine Negative (Negative); Clarity,Urine Clear (Clear); Color,Urine Yellow (Yellow); Glucose,Urine (UA) Normal (Normal); Ketones,Urine 10 mg/dL (Negative); Leukocyte Esterase,Urine Negative (Negative); Nitrite,Urine Negative (Negative); Protein,Urine Trace mg/dL (Neg-Trace); Specific Gravity,Urine 1.026 (1.010-1.025)
[2020-06-16] MEDS: Nicotine 14 MG PATCH.TD24 TD SCH (15:48)
[2020-06-16] MEDS: *HR* OxyCODONE Immed Rel 15 MG TABLET PO PRN (15:56)
[2020-06-16 16:47] LABS: Amphetamine Screen,Urine Negative ng/mL (Cutoff=1000); Barbiturate Screen,Urine Negative ng/mL (Cutoff=200); Benzodiazepines Screen,Urine Negative ng/mL (Cutoff=200); Cannabinoid Screen,Urine Positive ng/mL (Cutoff = 50); Cocaine Screen,Urine Negative ng/mL (Cutoff= 300); Opiate Screen,Urine Positive ng/mL (Cutoff=300); Phencyclidine Screen,Urine Negative ng/mL (Cutoff=25)
[2020-06-16] MEDS: *HR* Heparin 5,000 UNIT/ML VIAL SQ SCH (17:11)
[2020-06-16] MEDS ORDERED: VORTIOXETINE HYDROBROMIDE 20 MG PO SCH (21:30)
[2020-06-16] MEDS: hydrOXYzine pamoate 25 MG CAPSULE PO PRN (21:42)
[2020-06-17] MEDS: *HR* Heparin 5,000 UNIT/ML VIAL SQ SCH (05:31)
[2020-06-17 07:23] VITALS: BP 112/71
[2020-06-17] MEDS: Nicotine 14 MG PATCH.TD24 TD SCH (07:59)
[2020-06-17] MEDS: *HR* OxyCODONE Immed Rel 15 MG TABLET PO PRN (07:59)
[2020-06-17] MEDS: hydrOXYzine pamoate 25 MG CAPSULE PO PRN (08:06)
[2020-06-17] MEDS ORDERED: OXcarbazepine 150 MG TABLET PO SCH (09:00)
[2020-06-17 10:54] LABS: Alanine Aminotransferase 33 Units/L (7-52); Albumin/Globulin Ratio 1.4 (1.1-2.2); Alkaline Phosphatase 94 Units/L (34-104); Aspartate Amino Transferase 23 Units/L (13-39); BUN/Creatinine Ratio 16 (6-26); Bilirubin,Total 0.7 mg/dL (0.3-1.0); Blood Urea Nitrogen 9 mg/dL (6-20); Calcium 9.3 mg/dL (8.6-10.3); Carbon Dioxide 22 mEq/L (23-29); Chloride 105 mEq/L (98-107); Globulin 2.9 g/dL (2.4-3.5); Glucose 88 mg/dL (70-105); Osmolality,Calculated 274 (280-300); Potassium 3.4 mEq/L (3.5-5.1); Sodium 133 mEq/L (136-145); Total Protein 6.9 g/dL (6.4-8.9); eGFR For African Americans > 60 (> 60); eGFR For Non-African Americans > 60 (> 60)
[2020-06-17] MEDS ORDERED: Lubiprostone [Amitiza] 8 MCG Capsule PO SCH (17:00)
== END 2020-06-17 12:56 | disposition home or self-care (01) ==
LOC: 3BNU → SUATTDRO 06-16 10:18
PROVIDERS: ADMIT Family Medicine; ATTEND Registered Nurse